=== PATIENT | female | born 1965 | race Caucasian/White ===

== ENCOUNTER 2016-12-14 10:57 | Emergency (ER) | payer OTHER ==
[~2016-12-14] VITALS: Ht 157.5 cm; Wt 57.5 kg
[~2016-12-14 10:57] MED LIST: DICY10CA60 PO; ONDA4TAB35 PO
[2016-12-14 11:01] VITALS: Ht 157.5 cm; Wt 57.5 kg
[2016-12-14] MEDS ORDERED: LID50L4 MM (12:20)
--- NOTE | 2016-12-14 15:14 | ERD ---
DATE OF SERVICE: 12/14/2016 HISTORY OF PRESENT ILLNESS: Patient is a 51-year-old female coming in complaining of blisters in he r mouth. Patient states that she was diagnosed with an autoimmune disorder, she does not know what, but she has to follow up with her primary doctor. She states she has had no other symptoms. She j ust has blisters her tongue. Has no history of diabetes, no abdominal pain, no vomiting, no dizzine ss, no confusion, no fevers, no change in urination or bowel movement. She does not use any medicat ion in her mouth. PAST MEDICAL HISTORY: Positive EUGENIA with unknown autoimmune disorder. ALLERGIES TO MEDICATIONS: Denies. SURGICAL HISTORY: Denies. SOCIAL HISTORY: Denies. REVIEW OF SYSTEMS: A 12-point review of systems was done. Refer to HPI for positives, all other sy stems negative. PHYSICAL EXAMINATION VITAL SIGNS: Temperature is 98.7, pulse is 79, blood pressure is 122/69, respiratory 16, O2 sat 96% on room air. Pain intensity is 6/10. GENERAL: The patient is well-appearing, well-nourished, no acute distress. HEART: Regular rate and rhythm. No murmurs, clicks, rubs or gallops. No S3 or S4. CHEST: Clear to auscultation bilaterally. There are no rales, wheezes or rhonchi. HEENT: Atraumatic. Conjunctivae are pink. Pupils equal, round, and reactive to light. There is no s cleral icterus. Tympanic membranes clear bilaterally. Oropharynx clear. No nystagmus or photophobia . Patient has has erythematous, beefy red ulcers noted within the oropharynx. There are no surrou nding lacerations. SKIN: There is no apparent rash or petechia. The skin is warm and dry. DIAGNOSIS: Stomatitis. MEDICAL DECISION MAKING: I have low suspicion for meningitis or sepsis. Low suspicion for bacteria l HEENT infection, and low suspicion for a parasitic infection. Patient likely has viral inflammati on. DISCHARGE: The patient is discharged stable. Patient is given a prescription for viscous lidocaine and told to follow up with primary care within 1 to 2 days for reevaluation. Patient is told if sy mptoms progress or worsen to return to the ER. All other questions answered at time of discharge. Discharge instructions given at the time of departure. Patient understood and complied with plan. Dictated By: EMILIANA ROQUE/LORE Conf#: [id number] DID#: [id number]
== END 2016-12-14 12:46 | disposition home or self-care (01) ==
LOC: FTE 10:57
DX: K12.1 Other forms of stomatitis (principal)
CPT/HCPCS: 99283

== ENCOUNTER 2017-04-08 19:51 | Emergency (ER) | payer MEDICAID, OTHER ==
[~2017-04-08] VITALS: Ht 152.4 cm; Wt 55.0 kg
[~2017-04-08 19:51] MED LIST changes: +LID50L4 MM
[2017-04-08 20:23] VITALS: Ht 152.4 cm; Wt 55.0 kg
[2017-04-08] MEDS ORDERED: AZIT250T94 PO (21:24)
[2017-04-08] MEDS ORDERED: PROM5SYR2 PO (21:24)
--- NOTE | 2017-04-08 21:27 | ERD ---
ER Documentation Chief Complaint Date/Time DATE: 04/08/17 TIME: 21:25 Chief Complaint Cough and fever with joint aches HPI 51-year-old female here presenting with cough, runny nose, sore throat, and congestion for the past 6 days. She has tried tmss-kmg-jevpiso medications without any relief. Also admits to fever. Cough is worse at night and has yellow to clear colored phlegm. Denies any nausea or vomiting. Denies any chest pain or shortness of breath ROS All systems reviewed and are negative except as per history of present illness. Medications Home Meds Active Scripts Promethazine HCl/Codeine (Prometh-Codein 6.25-10 mg/5 ml) 5 Ml Syrup, 5 ML PO Q6 , #4 OZ Prov:AARTI MCKEON PA-C 04/08/17 Azithromycin* (Zithromax*) 250 Mg Tablet, 250 MG PO .ZPACK DIRECTED, #6 TAB TAKE 500 MG (2 TABS) THE FIRST DAY THEN 250 MG (1 TAB) DAYS 2-5 Prov:AARTI MCKEON PA-C 04/08/17 Lidocaine 4% Topical (Lidocaine HCl) 4%-50 Ml Soln, 1 APPLIC MM BID, #1 BOT Prov:KEITH BORJA PA-C 12/14/16 Ondansetron Hcl* (Zofran* ODT) 4 mg -ODT Tab.disper, 4 MG PO Q6H Y for NAUSEA, # 30 TAB Prov:PATRICA COLEMAN MD 08/28/15 Dicyclomine Hcl* (Bentyl*) 10 Mg Capsule, 10 MG PO QID, #20 CAP Prov:APTRICA COLEMAN MD 08/28/15 Allergies Allergies: Coded Allergies: Penicillins (Verified Allergy, Unknown, 08/28/15) prednisone (Verified Allergy, Unknown, 08/28/15) PMhx/Soc History of Surgery: No Anesthesia Reaction: No Hx Neurological Disorder: No Hx Cardiac Disorders: No Hx Psychiatric Problems: No Hx Alcohol Use: No Hx Substance Use: No Hx Tobacco Use: No Smoking Status: Never smoker FmHx Family History: No diabetes Physical Exam Vitals Vital Signs Date Time Temp Pulse Resp B/P Pulse Ox O2 Delivery O2 Flow Rate FiO2 04/08/17 20:23 99.5 105 22 116/70 100 Physical Exam General: well developed, well nourished, alert, nontoxic, no distress Head: normocephalic, atraumatic Eyes: PERRL, normal conjunctiva Neck: Supple, nontender, no lymphadenopathy, no midline tenderness Ears: no tenderness over mastoids bilaterally, TMs nonerythematous, no exudates in canal Oropharynx: no tonsilar erythema or edema, uvula midline, no exudates, no kissing tonsils, no drooling Respiratory: Clear to auscaultation bilaterally, speaks in full sentences, no use of accesory muscles or labored breathing, no rales, ronchi, or wheezing Cardiovascular: RRR, No murmurs GI: soft, non tender, non distended, negative murphys sign, negative mcburneys point tenderness, no cva tenderness bilaterally, no rebound or guarding Procedures/MDM 51-year-old female presents with what is most likely bronchitis. Low-grade temperature 99.5. Examination is otherwise normal she is well-appearing in no distress. Discharge her with azithromycin and promethazine with codeine cough syrup. I doubt pneumonia. Recommended this patient follow up with her primary care doctor within 48 hours or return to the emergency room for any worsening of symptoms. However this time I do believe there is suitable for outpatient management. I answered all their questions and they agreed with the plan and were discharged home. Departure Diagnosis: Primary Impression: Bronchitis Condition: Stable Patient Instructions: Bronchitis, Antiobiotic Treatment (Adult) Additional Instructions: Llame al doctor GEORGETTE y kavita bree DESIREE PARA DENTRO DE 1-2 PAULSON.Dgale a la secretaria que nosotros le instruimos hacer esta desiree.Avise o llame si chaparro condicin se empeora antes de la desiree. Regresa aqui si peor o no mejor. AARTI MCKEON PA-C April 08, 2017 21:27
[2017-04-08 21:32] VITALS: PULSE 100; RESP 16
== END 2017-04-08 21:35 | disposition home or self-care (01) ==
LOC: FTE 19:51
DX: J20.9 Acute bronchitis, unspecified (principal)
CPT/HCPCS: 99284

== ENCOUNTER 2018-05-18 18:57 | Emergency (ER) | END 2018-05-18 23:29 | disposition home or self-care (01) ==

== ENCOUNTER → 2019-02-12 | Outpatient (CLI) | payer OTHER ==
[~2019-02-12] MED LIST changes: +AZIT250T PO; +DICY10CA40 PO; -DICY10CA60 PO; +FLUC150T PO; -LID50L4 MM; +LIDO40SO8 MM; +METR70GE4 VAGINAL; +PROM5SYR2 PO; +TRAM50TA2 PO
--- NOTE | 2019-02-13 09:24 | RADRPT ---
PROCEDURE: Limited x-ray of both lower extremities. CLINICAL INDICATION: Bilateral leg pain. TECHNIQUE: Single frontal weightbearing view of both lower extremities was obtained from the hips t o the ankles. COMPARISON: None. FINDINGS: The right femur length is 46 cm. The left femur length is 45 cm. The right tibia length is 35 cm. The left tibia length is 33 cm. There is diffuse osteopenia. There is joint space narrowing involving the left knee medial and latera l joint compartments. IMPRESSION: 1. Leg lengths as indicated above. 2. Diffuse osteopenia. 3. Joint space narrowing of the left knee. RPTAT: QQ .Sarbjit Sanford MD, MD Date Time Electronically viewed and signed by .Sarbjit Sanford MD, on 02/13/2019 09:24 .R/
== END | disposition home or self-care (01) ==
LOC: HKI 15:39
PROVIDERS: ATTEND Orthopaedic Surgery Adult Reconstructive Orthopaedic Surgery
DX: M25.562 Pain in left knee (principal); M25.561 Pain in right knee
CPT/HCPCS: 77073

== ENCOUNTER 2019-03-01 07:15 | Inpatient (IN) | payer OTHER ==
[~2019-03-01] VITALS: Ht 154.9 cm; Wt 61.0 kg
[2019-03-22 16:49] VITALS: BMI 25.1
[2019-03-26] VITALS (28 sets, daily range): BP systolic 93–116; BP diastolic 50–65; PULSE 74–102; RESP 11–22; Ht 154.9 cm; Wt 61.0 kg
[2019-03-26] MEDS ORDERED: LEFL10TA15 PO (08:14)
[2019-03-26] MEDS ORDERED: ADAL40PE SQ (08:15)
[2019-03-26] MEDS ORDERED: LACTATED RINGER'S 1,000 ML IV* SCH (08:30)
[2019-03-26] MEDS ORDERED: CEFAZOLIN 2 GM/50 ML (PMX) 50 ML IVPB ONE (08:30)
[2019-03-26] MEDS ORDERED: CELECOXIB 200 MG CAP PO ONE (08:30)
[2019-03-26] MEDS ORDERED: LANSOPRAZOLE 30 MG CAP PO ONE (08:30)
[2019-03-26] MEDS ORDERED: ONDANSETRON 4 MG INJ IV ONE (08:30)
[2019-03-26] MEDS ORDERED: GABAPENTIN 300 MG CAP PO ONE (09:00)
[2019-03-26] MEDS ORDERED: ACETAMINOPHEN 1000MG/100ML IV 100 ML IVPB ONE ×2 (09:00→18:30)
--- NOTE | 2019-03-26 11:49 | HPN ---
Date/Time of Note Date/Time of Note DATE: 03/26/19 TIME: 11:49 Interval H&P Admission Note Pt. seen H&P reviewed: No system changes Patient denies fever, chills, shortness of breath, chest pain, nausea/vomiting, constipation, diarrhea, numbness, and tingling. MUSCULOSKELETAL: Left extremity Skin intact Sensation intact to light touch in a sural, saphenous, deep peroneal, superficial peroneal, medial and lateral plantar nerve distribution. Motor is intact, patient able to dorsiflex and plantarflex ankle and extend and flex great toe. Dorsalis Pedis pulse +2, Brisk capillary refill. Compartments are soft. Calves non-tender to palpation bilaterally. BERNA WALTERS MD Mar 26, 2019 11:49
--- NOTE | 2019-03-26 11:55 | PREAC ---
Date/Time of Note Date/Time of Note DATE: 03/26/19 TIME: 11:55 Anesthesia Eval and Record Evaluation Time Pre-Procedure Interview DATE: 03/26/19 TIME: 11:54 Age 53 Sex female NPO: 8 hrs Preoperative diagnosis L knee RA Planned procedure L TKR Past Medical History Past Medical History: Includes Musculoskeletal: Osteoarthritis, Rheumatoid arthritis Surgery & Anesthesia Issues No known issue Meds Anticoagulation: No Beta Breanna within 24 hr: No Reason Beta Breanna not given: Pt. not on B-Breanna Reported Medications Adalimumab (Humira) 40 Mg/0.8 Ml Pen.ij.kit, 40 MG SQ EVERY 2 WEEKS 03/26/19 Leflunomide* (Leflunomide*) 10 Mg Tablet, 10 MG PO DAILY, #30 TAB 03/26/19 Discontinued Scripts Fluconazole* (Diflucan*) 150 Mg Tablet, 150 MG PO DAILY for 1 Day, #1 TAB Prov:ANGELA,ANUSHA 05/18/18 Tramadol HCl (Tramadol HCl) 50 Mg Tablet, 50 MG PO Q6 PRN for PAIN, #20 TAB Prov:ANGELA,ANUSHA 05/18/18 Metronidazole (Metronidazole Gel) 0.75% - 70GM Gel.w.appl, 1 APPFUL VAGINAL BID for BV for 7 Days, #1 TUB Prov:ANGELA,ANUSHA 05/18/18 Promethazine HCl/Codeine (Prometh-Codein 6.25-10 mg/5 ml) 5 Ml Syrup, 5 ML PO Q6, #4 OZ Prov:AARTI MCKEON PA-C 04/08/17 Azithromycin* (Zithromax*) 250 Mg Tablet, 250 MG PO .NEDA DIRECTED, #6 TAB TAKE 500 MG (2 TABS) THE FIRST DAY THEN 250 MG (1 TAB) DAYS 2-5 Prov:AARTI MCKEON PA-C 04/08/17 Lidocaine 4% Topical (Lidocaine HCl) 4%-50 Ml Soln, 1 APPLIC MM BID, #1 BOT Prov:KEITH BORJA PA-C 12/14/16 Ondansetron Hcl* (Zofran* ODT) 4 mg -ODT Tab.disper, 4 MG PO Q6H PRN for NAUSEA, #30 TAB Prov:PATRICA COLEMAN MD 08/28/15 Dicyclomine HCl (Dicyclomine HCl) 10 Mg Capsule, 10 MG PO QID, #20 CAP Prov:PATRICA COLEMAN MD 08/28/15 Current Medications Ropivacaine/ Clonidine/ Epinephrine/ Ketorolac Tromethamine/ Sodium Chloride INTRA-OP INJ ; Start 03/26/19 at 10:30 Lactated Ringer's 1,000 ml @ 125 mls/hr Q8H IV* ; Start 03/26/19 at 08:30; Stop 03/26/19 at 16:29 Meds reviewed: Yes Allergies Coded Allergies: Penicillins (Verified Allergy, Severe, RASHES, 03/26/19) prednisone (Verified Allergy, Unknown, 03/26/19) Allergies Reviewed: Yes Labs/Studies Labs Reviewed: Reviewed by anesthesiologist Blood Bank Test 03/26/19 08:30 Antibody Screen NEGATIVE Blood Type O POSITIVE test: Negative Studies: ECG Pre-procedure Exam Last vitals Vital Signs Date Temp Pulse Resp B/P (MAP) Pulse Ox O2 O2 Flow FiO2 Time Delivery Rate 03/26/19 98.4 74 16 109/59 98 Room Air 08:38 (76) Airway: Adequate mouth opening, Adequate thyromental dist Mallampati: Mallampati II Teeth: Normal Lung: Normal Heart: Normal ASA Physical Status ASA physical status: 2 Emergency: None Planned Anesthetic General/MAC: ETT Neuraxial: Spinal Nerve block: Femoral (left) Planned Pain Management Sub-arachniod narcotics Pre-operative Attestations Prior to commencing anesthesia and surgery, the patient was re-evaluated, there was verification of: *The patient's identity *The results of appropriate recent lab work and preoperative vital signs *The above evaluation not changing prior to induction *Anesthetic plan, risk benefits, alternative and complications discussed with patient/family; questions answered; patient/family understands, accepts and wishes to proceed. HERMILO GOODE Mar 26, 2019 11:55
[2019-03-26] MEDS ORDERED: TRANEXAMIC ACID 1 GM/100 ML (PMX) ONE (12:00)
[2019-03-26] MEDS ORDERED: FENTAnyl 50 MCG/ML VIAL IV PRN ×2 (12:00)
[2019-03-26] MEDS ORDERED: NEOSTIGMINE 3 MG/3 ML SYRINGE ONE (12:00)
[2019-03-26] MEDS ORDERED: ALBUTEROL 0.083% (NEB) 2.5 MG/3 ML AMP HHN PRN (12:00)
[2019-03-26] MEDS ORDERED: HYDROmorphONE 1 MG/5 ML IV SYRINGE IV PRN ×3 (12:00)
[2019-03-26] MEDS ORDERED: MEPERIDINE 25 MG INJ IV PRN (12:00)
[2019-03-26] MEDS ORDERED: DIPHENHYDRAMINE 50 MG INJ IV PRN ×2 (12:00→18:30)
[2019-03-26] MEDS ORDERED: DEXAMETHASONE 4 MG/ML 5 ML INJ ONE (12:00)
[2019-03-26] MEDS ORDERED: GLYCOPYRROLATE 0.4 MG INJ ONE (12:00)
[2019-03-26] MEDS ORDERED: DESFLURANE 15 MIN ONE ×2 (12:00)
[2019-03-26] MEDS ORDERED: METOCLOPRAMIDE 10 MG INJ IV PRN (12:00)
[2019-03-26] MEDS ORDERED: ONDANSETRON 4 MG INJ IV PRN (12:00)
[2019-03-26] MEDS ORDERED: MIDAZOLAM 1 MG/ML 2 ML INJ ONE (12:04)
[2019-03-26] MEDS ORDERED: morphine SULFATE/PF (10 MG/10 ML) INJ ONE (12:04)
[2019-03-26] MEDS ORDERED: FENTAnyl 50 MCG/ML VIAL ONE ×2 (13:07→16:04)
[2019-03-26] MEDS: TRANEXAMIC ACID 1GM/100ML(PMX) 100 ML AT INCISION X1 IVPB ONE (13:11)
[2019-03-26] MEDS ORDERED: ROCURONIUM 50 MG INJ ONE (13:24)
[2019-03-26] MEDS ORDERED: LIDOCAINE 100 MG SYRINGE ONE (13:24)
[2019-03-26] MEDS ORDERED: CEFAZOLIN 1 GM INJ ONE (13:24)
[2019-03-26] MEDS ORDERED: SUCCINYLCHOLINE CHLORIDE 100 MG/5 ML SYG IV ONE (13:24)
[2019-03-26] MEDS ORDERED: PROPOFOL 20 ML ONE (13:24)
[2019-03-26] MEDS: TRANEXAMIC ACID 1GM/100ML(PMX) 100 ML AT CLOSURE X1 IVPB ONE ×2 (16:40)
[2019-03-26] MEDS ORDERED: ROPIVACAINE 0.5 % 30 ML VIAL ONE (17:44)
[2019-03-26] MEDS ORDERED: MAGNESIUM HYDROXIDE 30ML CUP PO PRN (18:30)
[2019-03-26] MEDS ORDERED: SENNA/DOCUSATE NA (8.6MG/50MG) TAB PO PRN (18:30)
[2019-03-26] MEDS ORDERED: NA PHOSPHATE/BIPHOS 133 ML ENEMA PR PRN (18:30)
[2019-03-26] MEDS ORDERED: NACL 0.9% 3 ML SYG IV SCH (18:30)
[2019-03-26] MEDS ORDERED: NALOXONE (0.4 MG/ML) INJ IV PRN (18:30)
[2019-03-26] MEDS ORDERED: BETHANECHOL 25 MG TAB PO PRN (18:30)
[2019-03-26] MEDS ORDERED: DOCUSATE SODIUM 100 MG CAP PO ONE (18:30)
[2019-03-26] MEDS ORDERED: BISACODYL 10 MG SUPP PR PRN (18:30)
[2019-03-26] MEDS: LACTATED RINGER'S 1,000 ML IV SCH ×2 (18:50→21:10)
--- NOTE | 2019-03-26 19:14 | OPR ---
Date/Time of Note Date/Time of Note DATE: 03/26/19 TIME: 19:11 Operative Report Procedure Date: Mar 26, 2019 Preoperative Diagnosis Left knee rheumatoid arthritis and pseudoarthrosis Postoperative Diagnosis As above Operation/Procedure Performed Left total knee arthroplasty. Modifier 22 secondary to at least 50% increase in time and effort and planning secondary to complexity of case Requiring numerous releases not normally required as well as revision components. Use of intraoperative x-ray Use of intraoperative navigation Open reduction internal fixation of iatrogenic femur fracture Surgeon see signature line Recruitment Coordinator Ric Vila Anesthesia Type: general, spinal Tourniquet Time: 119 Estimated Blood Loss: 200 - 250 ml's Transfusion none Specimen none Grafts/Implants IMPLANTS: [employer] TC3 Femur: size 2.5 TC3 Femoral stem: [id number] cemented Femoral adapter: 5 degree; neutral Tibia: Size 1.5 MBT revision Tibial Sleeve: 37mm porous coated Tibial Stem: [id number] press fit Poly insert: size 2.5 rotating platform TC3, 12.5mm thickness Patella: 32mm V[employer] cerclage cable x1 Complications Iatrogenic femur fracture. Pt Condition Post Procedure: stable Disposition: PACU Procedure Description PREOP DIAGNOSIS: Left knee knee rheumatoid arthritis with pseudoarthrosis POSTOP DIAGNOSIS: Same. SURGICAL PROCEDURE: Left total knee arthroplasty. Modifier 22 secondary to significant increase in complexity and effort resulting 50% increase in time approximately 2 hours. This was secondary to complex anatomy with fixed valgus alignment and pseudoarthrosis of the joint requiring multiple soft tissue releases and requiring revision components. Use of intraoperative x-ray Use of intraoperative navigation Open reduction internal fixation of iatrogenic femur fracture CPT CODE: 64171. INDICATIONS AND CONSENT: The patient is a 53 year-old woman, with an orthopaedic history consistent with progressively worsening knee pain. They have maximized nonoperative measures, which have included activity modification, medicines, intra-articular injections. On physical exam, they have fixed valgus alignment, no previous open surgical scars. They have ROM arc of 10 degrees between 30-40 degrees of flexion, no gross ligamentous instability. No significant venous stasis or edema. Distally neurovascular intact. They were offered a knee replacement. A lengthy discussion ensued, where the patient was told that if and when the symptoms are intolerable, elective total knee replacement should be considered. The operative procedure was explained using diagrams and or three-dimensional models. The rehabilitation, the potential risks, benefits and alternatives were discussed at length. Specific risks discussed included but were not limited to excessive blood loss and the need for transfusion and therefore the risk of transmissible disease or transfusion reaction, deep infection and the potential need for repetitive debridements, implant removal, long-term antibiotic therapy, possibly requiring deep venous access, extensor mechanism complications, including subluxation or dislocation, disruption of the quadriceps or patellar tendon, fracture of the patella or avulsion of the tibial tuberosity, femoral, tibial or fibular fracture and the need for further surgery for fixation, neurovascular injury with temporary or permanent numbness, tingling, weakness or paralysis, arterial injury requiring surgery including possible amputation, deep venous thrombosis, pulmonary embolism and , persistent pain, weakness, or limp, late aseptic loosening and the need for revision, polyethylene wear- induced osteolysis and related problems, post-operative stiffness requiring closed manipulation, and finally, a wide variety of unanticipated medical problems. The opportunity to ask questions and address any concerns was provided. The patient elected to proceed with TKA. FINDINGS: Pseudoarthrosis of the knee joint. Fibrotic scar tissue adhered between the extensor mechanism and the femur as well as the tibia. Fibrotic scar tissue spanning the joint of the tibia to femur. Extremely osteoporotic bone with large cysts. Bone crumbled and was crushed with simple manipulation. The posterior medial femoral condyle was collapsed. Full-thickness loss of articular cartilage in all 3 compartments. SURGERY IN DETAIL: Patient was taken into the Operating Room, placed supine on the operating table. Preoperatively, they were given weight-based dosing of Ancef and if MRSA positive vancomycin was given in addition. Tourniquet was placed to the left proximal thigh. Regional anesthesia was administered by Anesthesia Department. Left lower extremity was prepped and draped in sterile fashion. Surgical pause was performed, correctly identifying the patient's name, medical record number, diagnoses, surgical procedure, and laterality of procedure. The leg was elevated, exsanguinated with an Esmarch, tourniquet was inflated to 250 mmHg, remained inflated for 119 minutes, after which it was deflated. An anterior midline incision approximately 15-20 cm in length was made, centered over the patella ending just medial to the tibial tubercle. Skin and subcutaneous tissue sharply dissected down the Billie's fascia superiorly, which was incised in line with skin incision. The quadriceps tendon, medial patellar retinaculum, patellar tendon were visualized. A medial parapatellar arthrotomy was performed. At this time a #10 blade was used to release the adhesions between the extensor mechanism and the femur and tibia. Fibrotic tissue bridgin g the tibiofemoral joint was then excised to medial and laterally. The proximal medial tibia was subperiosteally exposed for a distance of 4 cm from joint line. The deep infrapatellar bursa was incised. The patella was subluxated and the knee was flexed, while protecting the insertion of patellar tendon. A 3/8-inch curved osteotome was used to enter the semimembranosus bursa at the level of the joint line medially. Medial meniscus was excised at the meniscal- synovial junction. The anterior cruciate ligament was excised. The posterior cruciate ligament was excised with electrocautery from the intercondylar region and a posterior retractor was placed, subluxating the tibia anterolateral to the femur. A hernia was made anterolateral to the lateral meniscus and a right- angle retractor was placed over the anterolateral tibia. A lateral meniscectomy was performed. The inferior lateral geniculate artery was coagulated. The tibia was reduced under the femur. An intramedullary pin was placed for the OrthAlign device. The OrthAlign navigation unit and sensor were calibrated at the back table. The OrthAlign femoral cutting jig was then placed over the central pin, and secured with a medial and lateral pin. The OrthAlign navigation unit and OrthAlign sensor were then attached to the jig. The leg was maneuvered for appropriate capture and calibration. After this was performed, the navigation unit was adjusted for a 0 varus/valgus (neutral mechanical axis) and 2.0-2.5 degree posterior flexion cut. The cutting jig was locked in place. The navigation and sensor unit were then removed. The distal femoral cut was set at 11mm for the osteotomy . This was then secured with two pins. A distal femoral osteotomy was performed. The OrthAlign femoral jig was then removed. A posterior retractor was placed and an anterolateral retractor was placed on the tibia, subluxating the tibia anterior to the femur. The OrthAlign tibial cutting jig was then applied to the tibia preliminarily with the strap. This was secured with two pins centered over the medial 1/3 of the tibial tubercle. The offset was established proximally at the ACL footprint. This was then matched distally. Registration was then performed, registering the lateral malleolus and the medial malleolus. After this was performed, the malleolar probe was then utilized to help set the appropriate varus/valgus as well as tibial slope. This was then locked into position. The navigation guide and sensor were then removed. The slotted tibial cutting jig was then applied and secured with two pins. A proximal tibia osteotomy was performed. The tibia was then brought to full extension and a 10 mm spacer block was inserted, and felt to be satisfactory extension gap. The knee was flexed again and the tibial alignment guide was then removed. With the knee flexed to 90 degrees a femoral sizing jig was placed on the distal femur and secured, the femur sized to a size 2.5. Modified gap balancing technique was used to determine external rotation as posterior referencing would not be accurate secondary to AVN of the medial femoral condyle. This was parallel to the epicondylar axis. A size 2.5 4-in-1 femoral cutting block was then secured to the femur with two lock pins and an anterior, posterior condylar cut were performed, followed by an anterior chamfer and a posterior chamfer cut. Cutting block was removed. A 10 mm spacer was then inserted at 90 degrees of flexion and this was symmetric with the extension gap. An intercondylar box osteotomy was performed using the box cutting guide. Secondary to the severe osteoporosis of the tibia it was decided to use a revision mobile bearing tibial baseplate wear a sleeve could be used to augment metaphyseal fixation. This time attention turned towards preparing the tibia for sleeve and stem components. An opening reamer was used followed by straight reamers for an intramedullary guide. These were sequentially enlarged to a size 75 x 16 mm when good cortical contact was appreciated. Using a longer and smaller trial stem as it intramedullary guide the tibial metaphysis was prepped for a sleeve first with a reamer and then by the broach. A trial tibial base plate, size 1.5 with a 37 mm trial sleeve with a 75 x 16 mm trial stem was inserted without difficulty. The keel punch was then completed. At this time trial femoral component was placed and was noted that the MCL further attenuated. Therefore decided to convert to a TC3 given the attenuation of the MCL. Opening reamer was used to open the femoral canal. This is followed by bulb syringe irrigation until the fluid was clear. Reamers by hand were used sequentially until size 30 x 13 mm cemented stem. A reciprocating saw was used to make the box cut. At this time all femoral cutting blocks and reamers were removed. A 10 mm spacer was then inserted at 90 degrees of flexion and this was symmetric with the extension gap. A trial size 2.5 femur with a 30 x 13 mm trial stem was then inserted. A 10 mm constrained polyethylene trial was inserted and the knee was brought to full extension.The patella was everted and the osteochondral junction was exposed. The patella measured 20 mm in thickness. A patellar osteotomy performed leaving 12 mm remnant patella. Three lug holes were drilled for the 32mm diameter p atellar button. At this time the femoral canal was prepared for cementation. A cement restrictor was placed at the appropriate depth measured off the trial component. A canal brush was then used to clean debris followed by copious irrigation and vaginal packing. Posterior capsule along the posterior femoral condyles was released in order to obtain full extension. Cement with antibiotics was mixed at the back table. At the appropriate time and consistency cement was placed onto the tibial plateau. Cement was finger pressurized. Cement was placed on the backside of the tibial component and along the stem and sleeve were placed in the appropriate rotation. The tibial component was placed by hand into the keel and was then impacted and extruded cement removed. Cement was then finger pressurized into the femoral canal and cement was applied to exposed bone of the femur, as well as the posterior condylar portion prostheses, and the femoral component was inserted, extruded cement was then removed. The knee was brought to full extension. Cement was applied to the patella, as well as the patellar button, which was clamped into position. Extruded cement was removed. It was noted at this time that there was a small nondisplaced fracture over the anterior femoral metaphysis. This fracture propagated approximately from the prosthesis for about 5 cm. It was incomplete fracture but did travel towards the medial cortex. After the cement completely dried, the tourniquet was deflated. [employer] cable was carefully passed around the femoral metaphysis using a cable passer. This was appropriately tensioned and tightened. The fracture was stable. At this time the knee was flexed, the trial polyethylene was removed. Scored cement was removed. Hemostasis was obtained. Pulse lavage was used to irrigate and remove any loose debris from posterior knee. A formal size 2.5, 12.5 mm TC3 polyethylene was inserted. Range of motion was 0 to 110 degrees. The limiting factor for flexion was a tight extensor mechanism. The quad tendon was extremely shortened. The quad tendon was manually stretched to obtain 110 degrees. Prior to stretching flexion only to 90 degrees. The knee was reduced, hemostasis obtained. Copious amounts of irrigation was used with pulse lavage to remove and loose debris. The arthrotomy was closed with 1 PDS in a [id number], interrupted fashion, subcutaneous tissues irrigated, closed with 2-0 Vicryl in an inverted, interrupted fashion. The skin was closed with phoebe. A sterile dressing was applied. Sponge, needle and instrument counts were correct at the end of the case. DISPOSITION: Patient transferred to PACU in stable condition. The patient will be NON weight bearing as tolerated on the operative extremity. PT will begin POD #0 if available. Postoperative AP and lateral of the operative knee will be ordered in PACU. Bilateral knee high SCDs will be worn while admitted. ASA 81mg BID will be given for DVT prophylaxis for 6 weeks. Pain will be controlled with medication. The patient will follow up in clinic in approximately 2 weeks. IMPLANTS: [employer] TC3 Femur: size 2.5 TC3 Femoral stem: [id number] cemented Femoral adapter: 5 degree; neutral Tibia: Size 1.5 MBT revision Tibial Sleeve: 37mm porous coated Tibial Stem: [id number] press fit Poly insert: size 2.5 rotating platform TC3, 12.5mm thickness Patella: 32mm [employer] cerclage cable x1 NAME OF SURGEONS AND ASSISTANTS: Surgeon: Berna Geiger MD Recruitment Coordinator: BERNA Weston MD Mar 26, 2019 19:14
[2019-03-26] MEDS: CEFAZOLIN 2 GM/50 ML (PMX) 50 ML IVPB SCH (19:21)
[2019-03-26] MEDS: KETOROLAC 15 MG INJ IV PRN (19:36)
[2019-03-26] MEDS: ACETAMINOPHEN 500 MG TAB PO SCH (21:45)
[2019-03-26] MEDS: GABAPENTIN 300 MG CAP PO SCH (21:45)
[2019-03-27] MEDS: CEFAZOLIN 2 GM/50 ML (PMX) 50 ML IVPB SCH ×2 (03:06→10:19)
[2019-03-27 04:06] VITALS: BP 85/52; PULSE 72; RESP 18
[2019-03-27 04:40] VITALS: BP 90/50
[2019-03-27] MEDS: ACETAMINOPHEN 500 MG TAB PO SCH ×3 (05:28→21:25)
[2019-03-27 05:29] VITALS: BP 101/58; PULSE 88; RESP 20
[2019-03-27 07:41] VITALS: BP 86/51; PULSE 67; RESP 18
--- NOTE | 2019-03-27 08:44 | CONS ---
Assessment/Plan Assessment/Plan Hospital Course (Demo Recall) 53-year-old female who was admitted for elective left total knee arthroplasty and is being monitored as inpatient. 1. Left knee rheumatoid arthritis and pseudoarthrosis. -Status post left total knee arthroplasty on 03/26/2019. -Postoperative day #1. -Continue pain control. -Pain management as per orthopedic surgery. -Weightbearing and anticoagulation as per orthopedic surgery. 2. Normocytic, normochromic anemia. -Most probably anemia of chronic disease -Monitor H&H closely. 3. Rheumatoid arthritis -Resume leflunomide. 4. Fluids, electrolytes, and nutrition. -Regular diet. 5. Anticoagulation. -As per orthopedic surgery. Additional diagnostic and therapeutic orders will be added as clinically indicated. We will continue to follow the patient along with you. Thank you Dr. Geiger for allowing us to participate in this patient's care. The patient was seen in collaboration with Dr. Bee. Consultation Date/Type/Reason Admit Date/Time Mar 26, 2019 at 07:27 Date of Consultation: March 27, 2019 Type of Consult Medical. Reason for Consultation Medical management. Requesting Provider: BERNA GEIGER MD Date/Time of Note DATE: 03/27/19 TIME: 08:44 Hx of Present Illness This is a 53-year-old female with no significant past medical history other than her rheumatoid arthritis. The patient was brought to [facility] for elective left total knee arthroplasty. The patient underwent a left total knee arthroplasty on 03/26/2019. The patient was admitted to inpatient setting for further monitoring. Hospitalist consult was called for medical management. Constitutional: no complaints Eyes: no complaints ENT: no complaints Respiratory: no complaints Cardiovascular: no complaints Gastrointestinal: no complaints Genitourinary: no complaints Musculoskeletal: bone/joint pain Skin: no complaints Neurologic: no complaints Endocrine: no complaints Lymphatic: no complaints Psychological: no complaints Immunologic: no complaints Past Medical History Rheumatoid arthritis. Home Meds Reported Medications Adalimumab (Humira) 40 Mg/0.8 Ml Pen.ij.kit, 40 MG SQ EVERY 2 WEEKS 03/26/19 Leflunomide* (Leflunomide*) 10 Mg Tablet, 10 MG PO DAILY, #30 TAB 03/26/19 Discontinued Scripts Fluconazole* (Diflucan*) 150 Mg Tablet, 150 MG PO DAILY for 1 Day, #1 TAB Prov:ANGELA,ANUSHA 05/18/18 Tramadol HCl (Tramadol HCl) 50 Mg Tablet, 50 MG PO Q6 PRN for PAIN, #20 TAB Prov:ANGELA,ANUSHA 05/18/18 Metronidazole (Metronidazole Gel) 0.75% - 70GM Gel.w.appl, 1 APPFUL VAGINAL BID for BV for 7 Days, #1 TUB Prov:ANGELA,ANUSHA 05/18/18 Promethazine HCl/Codeine (Prometh-Codein 6.25-10 mg/5 ml) 5 Ml Syrup, 5 ML PO Q6, #4 OZ Prov:AARTI MCKEON PA-C 04/08/17 Azithromycin* (Zithromax*) 250 Mg Tablet, 250 MG PO .ZPACK DIRECTED, #6 TAB TAKE 500 MG (2 TABS) THE FIRST DAY THEN 250 MG (1 TAB) DAYS 2-5 Prov:AARTI MCKEON PA-C 04/08/17 Lidocaine 4% Topical (Lidocaine HCl) 4%-50 Ml Soln, 1 APPLIC MM BID, #1 BOT Prov:KEITH BORJA PA-C 12/14/16 Ondansetron Hcl* (Zofran* ODT) 4 mg -ODT Tab.disper, 4 MG PO Q6H PRN for NAUSEA, #30 TAB Prov:PATRICA COLEMAN MD 08/28/15 Dicyclomine HCl (Dicyclomine HCl) 10 Mg Capsule, 10 MG PO QID, #20 CAP Prov:PATRICA COLEMAN MD 08/28/15 Medications Current Medications Lactated Ringer's 1,000 ml @ 80 mls/hr [id number] IV Last administered on 03/26/19at 21:10; Admin Dose 80 MLS/HR; Start 03/26/19 at 18:21 IV Flush (NS 3 ml) 3 ml PER PROTOCOL IV ; Start 03/26/19 at 18:30 Oxycodone HCl (Roxicodone) 15 mg Q4H PRN PO .PAIN; Start 03/26/19 at 18:30 Oxycodone HCl (Roxicodone) 10 mg Q4H PRN PO .PAIN; Start 03/26/19 at 18:30 Oxycodone HCl (Roxicodone) 5 mg Q4H PRN PO .PAIN; Start 03/26/19 at 18:30 Hydromorphone HCl (Dilaudid) 1 mg Q3H PRN IV .BREAKTHROUGH PAIN; Start 03/26/19 at 18:30 Acetaminophen (Tylenol Tab) 1,000 mg Q8 PO Last administered on 03/27/19at 05:28; Admin Dose 1,000 MG; Start 03/26/19 at 22:00 Ketorolac Tromethamine (Toradol) 15 mg Q6H PRN IV .PAIN Last administered on 03/26/19at 19:36; Admin Dose 15 MG; Start 03/26/19 at 18:30 Ondansetron HCl (Zofran Inj) 4 mg Q4H PRN IV NAUSEA/VOMITING; Start 03/27/19 at 18:30 Cefazolin Sodium/ Dextrose 50 ml @ 100 mls/hr Q8H IVPB Last administered on 03/27/19at 03:06; Admin Dose 100 MLS/HR; Start 03/26/19 at 18:30; Stop 03/27/19 at 10:59 Gabapentin (Neurontin) 300 mg QHS PO Last administered on 03/26/19at 21:45; Admin Dose 300 MG; Start 03/26/19 at 21:00 Pantoprazole (Protonix Tab) 40 mg DAILY@06 PO ; Start 03/28/19 at 06:00 Docusate Sodium (Colace) 200 mg BID PO ; Start 03/27/19 at 09:00; Stop 03/30/19 at 08:59 Simethicone (Mylicon) 80 mg TID PRN PO .GAS; Start 03/26/19 at 18:30 Senna/Docusate Sodium (Senokot-S) 2 tab BID PRN PO .CONSTIPATION; Start 03/26/19 at 18:30 Magnesium Hydroxide (Milk Of Mag) 30 ml HS PRN PO .CONSTIPATION; Start 03/26/19 at 18:30 Bisacodyl (Dulcolax Supp) 10 mg DAILY PRN [place] .CONSTIPATION; Start 03/26/19 at 18:30 Sodium Biphosphate/ Sodium Phosphate (Fleet Enema) 133 ml DAILY PRN [place] .CONSTIPATION; Start 03/26/19 at 18:30 Diphenhydramine HCl (Benadryl) 25 mg Q4H PRN IV .ITCHING; Start 03/26/19 at 18:30 Naloxone HCl (Narcan) 0.2 mg Q2M PRN IV .RESP RATE; Start 03/26/19 at 18:30 Bethanechol Chloride (Urecholine) 25 mg URINARY CATH D/C PRN PO UNABLE TO VOID; Start 03/26/19 at 18:30 Aspirin (Halfprin) 81 mg BID PO ; Start 03/27/19 at 09:00 Allergies: Coded Allergies: Penicillins (Verified Allergy, Severe, RASHES, 03/26/19) prednisone (Verified Allergy, Unknown, 03/26/19) Past Surgical History Past Surgical Hx: no surgical history Family History Significant Family History: heart disease Social History Currently not working. Lives at home with family. Alcohol Use: none Smoking Status: Never smoker Drug Use: none Exam/Review of Systems Exam Vitals Vital Signs Date Temp Pulse Resp B/P (MAP) Pulse Ox O2 O2 Flow FiO2 Time Delivery Rate 03/27/19 98.3 67 18 86/51 (63) 100 Room Air 07:41 03/26/19 6.0 18:34 Intake and Output 03/26/19 03/26/19 03/27/19 1515:00 23:00 07:00 IntakeIntake Total 100 ml 2970 ml 1230 ml OutputOutput Total 550 ml 1650 ml BalanceBalance 100 ml 2420 ml -420 ml Exam General: Adequately build 53 year-old female sitting in a chair in no apparent distress. HEENT: Normocephalic, atraumatic. Eyes: Anicteric sclerae, conjunctivae clear. ENT: Nasal septum midline, oral mucosa moist. Neck supple, no JVD noticed. Respiratory: Bilaterally clear breath sounds. No use of accessory muscles of respiration. No adventitious breath sounds. Cardiovascular: S1, S2 heard. Regular rate and rhythm. Abdomen: Soft, nontender, and nondistended. Bowel sounds positive in all 4 quadrants. Genitourinary: Deferred. Extremities: No cyanosis, no clubbing. Left knee surgical dressing. Peripheral pulses palpable. Neurologic: Cranial nerves II through XII grossly intact. The patient is awake, alert, and oriented. Skin: Normal skin turgor. No skin rashes. Results Result Diagram: 03/27/19 0428 03/27/19 0500 Results 24hrs Laboratory Tests Test 03/27/19 04:28 03/27/19 05:00 03/27/19 06:49 White Blood Count 9.9 Red Blood Count 3.00 #L Hemoglobin 8.7 #L Hematocrit 26.3 #L Mean Corpuscular Volume 87.7 Mean Corpuscular Hemoglobin 29.0 Mean Corpuscular Hemoglobin Concent 33.1 Red Cell Distribution Width 14.5 Platelet Count 228 # Mean Platelet Volume 10.0 Immature Granulocytes % 0.300 Neutrophils % 80.5 H Lymphocytes % 13.0 L Monocytes % 6.1 Eosinophils % 0.0 Basophils % 0.1 Nucleated Red Blood Cells % 0.0 Immature Granulocytes # 0.030 Neutrophils # 7.9 H Lymphocytes # 1.3 Monocytes # 0.6 Eosinophils # 0.0 Basophils # 0.0 Nucleated Red Blood Cells # 0.0 Sodium Level 143 Potassium Level 4.1 Chloride Level 112 H Carbon Dioxide Level 26 Anion Gap 5 Blood Urea Nitrogen 12 Creatinine 0.50 Est Glomerular Filtrat Rate mL/min > 60 Glucose Level 115 Calcium Level 8.7 Lab Scanned Report REFERENCE LAB Medications Medication Current Medications Lactated Ringer's 1,000 ml @ 80 mls/hr [id number] IV Last administered on at 21:10; Admin Dose 80 MLS/HR; Start 03/26/19 at 18:21 IV Flush (NS 3 ml) 3 ml PER PROTOCOL IV ; Start 03/26/19 at 18:30 Oxycodone HCl (Roxicodone) 15 mg Q4H PRN PO .PAIN; Start 03/26/19 at 18:30 Oxycodone HCl (Roxicodone) 10 mg Q4H PRN PO .PAIN; Start 03/26/19 at 18:30 Oxycodone HCl (Roxicodone) 5 mg Q4H PRN PO .PAIN; Start 03/26/19 at 18:30 Hydromorphone HCl (Dilaudid) 1 mg Q3H PRN IV .BREAKTHROUGH PAIN; Start 03/26/19 at 18:30 Acetaminophen (Tylenol Tab) 1,000 mg Q8 PO Last administered on 03/27/19at 05:28; Admin Dose 1,000 MG; Start 03/26/19 at 22:00 Ketorolac Tromethamine (Toradol) 15 mg Q6H PRN IV .PAIN Last administered on 03/26/19at 19:36; Admin Dose 15 MG; Start 03/26/19 at 18:30 Ondansetron HCl (Zofran Inj) 4 mg Q4H PRN IV NAUSEA/VOMITING; Start 03/27/19 at 18:30 Cefazolin Sodium/ Dextrose 50 ml @ 100 mls/hr Q8H IVPB Last administered on 03/27/19at 03:06; Admin Dose 100 MLS/HR; Start 03/26/19 at 18:30; Stop 03/27/19 at 10:59 Gabapentin (Neurontin) 300 mg QHS PO Last administered on 03/26/19at 21:45; Admin Dose 300 MG; Start 03/26/19 at 21:00 Pantoprazole (Protonix Tab) 40 mg DAILY@06 PO ; Start 03/28/19 at 06:00 Docusate Sodium (Colace) 200 mg BID PO ; Start 03/27/19 at 09:00; Stop 03/30/19 at 08:59 Simethicone (Mylicon) 80 mg TID PRN PO .GAS; Start 03/26/19 at 18:30 Senna/Docusate Sodium (Senokot-S) 2 tab BID PRN PO .CONSTIPATION; Start 03/26/19 at 18:30 Magnesium Hydroxide (Milk Of Mag) 30 ml HS PRN PO .CONSTIPATION; Start 03/26/19 at 18:30 Bisacodyl (Dulcolax Supp) 10 mg DAILY PRN [place] .CONSTIPATION; Start 03/26/19 at 18:30 Sodium Biphosphate/ Sodium Phosphate (Fleet Enema) 133 ml DAILY PRN [place] .CONSTIPATION; Start 03/26/19 at 18:30 Diphenhydramine HCl (Benadryl) 25 mg Q4H PRN IV .ITCHING; Start 03/26/19 at 18:30 Naloxone HCl (Narcan) 0.2 mg Q2M PRN IV .RESP RATE; Start 03/26/19 at 18:30 Bethanechol Chloride (Urecholine) 25 mg URINARY CATH D/C PRN PO UNABLE TO VOID; Start 03/26/19 at 18:30 Aspirin (Halfprin) 81 mg BID PO ; Start 03/27/19 at 09:00 ABDELRAHMAN OTTO NP March 27, 2019 08:44
[2019-03-27] MEDS: ASPIRIN (EC) 81 MG TAB PO SCH ×2 (08:46→20:06)
[2019-03-27] MEDS: DOCUSATE SODIUM 100 MG CAP PO SCH ×2 (08:47→20:06)
[2019-03-27] MEDS: LEFLUNOMIDE 20 MG TAB PO SCH (10:38)
--- NOTE | 2019-03-27 12:09 | PAC ---
Date/Time of Note Date/Time of Note DATE: 03/27/19 TIME: 12:09 Post-Anesthesia Notes Post-Anesthesia Note Last documented vital signs Vital Signs Date Temp Pulse Resp B/P (MAP) Pulse Ox O2 O2 Flow FiO2 Time Delivery Rate 03/27/19 98.3 67 18 86/51 (63) 100 Room Air 07:41 03/26/19 6.0 18:34 Activity: WNL Respiratory function: WNL Cardiovascular function: WNL Mental status: Baseline Pain reasonably controlled: Yes Hydration appropriate: Yes Nausea/Vomiting absent: Yes HERMILO GOODE March 27, 2019 12:09
--- NOTE | 2019-03-27 16:24 | PN ---
Date/Time of Note Date/Time of Note DATE: 03/27/19 TIME: 16:23 Assessment/Plan Lines/Catheters IV Catheter Type (from Nrsg): Peripheral IV Salazar in Place (from Nrsg): No Assessment/Plan Chief Complaint/Hosp Course POD#1 s/p primary left TKA with TC3 -Post op H&H stable -PT/OT -Joints pain control protocol -DVT prophylaxis: SCD's, aspirin 81 mg twice daily x6 weeks -Weight bearing status: Partial weightbearing 20% left lower extremity secondary to iatrogenic femur fracture -Post-op XR ordered -Abx: 24h vanc/ancef -Diet: ADAT -Salazar: Discontinued -Discharge planning consult Planned Discharge Date: Tomorrow Discharge to with home health Subjective 24 Hr Interval Summary Patient doing well No acute events overnight Pain is moderately well controlled Exam/Review of Systems Vital Signs Vitals Vital Signs Date Temp Pulse Resp B/P (MAP) Pulse Ox O2 O2 Flow FiO2 Time Delivery Rate 03/27/19 36.8 14:00 03/27/19 67 18 86/51 (63) 100 Room Air 07:41 03/26/19 6.0 18:34 Intake and Output 03/26/19 03/26/19 03/27/19 1515:00 23:00 07:00 IntakeIntake Total 100 ml 2970 ml 1230 ml OutputOutput Total 550 ml 1650 ml BalanceBalance 100 ml 2420 ml -420 ml Exam Free Text/Dictation Left lower extremity: Dressing: clean, dry, and intact, no erythema Sensation intact to light touch in a sural, saphenous, deep peroneal, superficial peroneal, medial and lateral plantar nerve distribution. Motor is intact, patient able to dorsiflex and plantarflex ankle and extend and flex great toe. Dorsalis Pedis pulse +2, Brisk capillary refill. Compartments are soft. Calves non-tender to palpation bilaterally. Results Result Diagram: 03/27/19 0428 03/27/19 0500 BERNA WALTERS MD March 27, 2019 16:24
[2019-03-27] MEDS: oxyCODONE 5 MG TAB PO PRN ×3 (16:39→18:51)
[2019-03-27] MEDS: KETOROLAC 15 MG INJ IV PRN (17:02)
[2019-03-27 17:27] VITALS: BP 98/57; PULSE 86; RESP 18
[2019-03-27] MEDS ORDERED: ONDANSETRON 4 MG INJ IV PRN (18:30)
[2019-03-27] MEDS: LACTATED RINGER'S 1,000 ML IV SCH (19:21)
[2019-03-27 20:00] VITALS: BP 82/45; PULSE 87; RESP 20
[2019-03-27] MEDS: HYDROmorphONE 1 MG/ML SYG IV PRN (20:03)
[2019-03-27] MEDS: GABAPENTIN 300 MG CAP PO SCH (20:05)
[2019-03-28 01:00] VITALS: BP 90/53; PULSE 86; RESP 20
[2019-03-28] MEDS: oxyCODONE 5 MG TAB PO PRN ×5 (01:07→23:07)
[2019-03-28] MEDS: KETOROLAC 15 MG INJ IV PRN ×2 (02:52→18:02)
[2019-03-28] MEDS: HYDROmorphONE 1 MG/ML SYG IV PRN ×2 (03:34→09:08)
[2019-03-28] MEDS: PANTOPRAZOLE (EC) 40 MG TAB PO SCH (05:25)
[2019-03-28] MEDS: ACETAMINOPHEN 500 MG TAB PO SCH ×3 (05:25→22:00)
[2019-03-28] MEDS: LACTATED RINGER'S 1,000 ML IV SCH (07:51)
[2019-03-28 07:57] VITALS: BP 82/47; PULSE 105; RESP 18
[2019-03-28] MEDS: ASPIRIN (EC) 81 MG TAB PO SCH ×2 (08:10→20:38)
[2019-03-28] MEDS: LEFLUNOMIDE 20 MG TAB PO SCH (08:10)
[2019-03-28] MEDS: DOCUSATE SODIUM 100 MG CAP PO SCH ×2 (08:10→20:42)
--- NOTE | 2019-03-28 09:58 | CONS ---
Assessment/Plan Assessment/Plan Hospital Course (Demo Recall) SUBJECTIVE: Complains of left knee pain, relieved with analgesics. OBJECTIVE: Physical Exam General: Adequately build 53 year-old female sitting in a chair in no apparent d istress. HEENT: Normocephalic, atraumatic. Eyes: Anicteric sclerae, conjunctivae clear. ENT: Nasal septum midline, oral mucosa moist. Neck supple, no JVD noticed. Respiratory: Bilaterally clear breath sounds. No use of accessory muscles of respiration. No adventitious breath sounds. Cardiovascular: S1, S2 heard. Regular rate and rhythm. Abdomen: Soft, nontender, and nondistended. Bowel sounds positive in all 4 quadrants. Genitourinary: Deferred. Extremities: No cyanosis, no clubbing. Left knee surgical dressing. Peripheral pulses palpable. Neurologic: Cranial nerves II through XII grossly intact. The patient is awake, alert, and oriented. Skin: Normal skin turgor. No skin rashes. Labs & Vitals per chart ASSESSMENT & PLAN 53-year-old female who was admitted for elective left total knee arthroplasty and is being monitored as inpatient. 1. Left knee rheumatoid arthritis and pseudoarthrosis. -Status post left total knee arthroplasty on 03/26/2019. -Postoperative day #2. -Continue pain control. -Pain management as per orthopedic surgery. -Weightbearing and anticoagulation as per orthopedic surgery. 2. Normocytic, normochromic anemia. -Most probably anemia of chronic disease -Monitor H&H closely. 3. Rheumatoid arthritis -Continue leflunomide. 4. Fluids, electrolytes, and nutrition. -Regular diet. 5. Anticoagulation. -As per orthopedic surgery. 6. Recommendations. -Drop in H&H noticed. -No evidence of any significant bleeding. -Monitor H&H closely. -Blood pressure on the lower side, however, remains asymptomatic and the patient verbalized she always had low blood pressure readings. Additional diagnostic and therapeutic orders will be added as clinically indicated. We will continue to follow the patient along with you. Thank you Dr. Geiger for allowing us to participate in this patient's care. The patient was seen in collaboration with Dr. Bee. Consultation Date/Type/Reason Admit Date/Time March 28, 2019 at 08:08 Initial Consult Date 03/27/19 Type of Consult Medical. Reason for Consultation Medical management. Requesting Provider: BERNA GEIGER MD Date/Time of Note DATE: 03/28/19 TIME: 09:54 Exam/Review of Systems Exam Vitals Vital Signs Date Temp Pulse Resp B/P (MAP) Pulse Ox O2 O2 Flow FiO2 Time Delivery Rate 03/28/19 99.3 105 18 82/47 (59) 99 Room Air 07:57 03/26/19 6.0 18:34 Intake and Output 03/27/19 03/27/19 03/28/19 1515:00 23:00 07:00 IntakeIntake Total 160 ml OutputOutput Total 495 ml BalanceBalance -335 ml Results Result Diagram: 03/28/19 0425 03/28/19 0425 Results 24hrs Laboratory Tests Test 03/28/19 04:25 03/28/19 07:17 White Blood Count 7.0 # Red Blood Count 2.71 L Hemoglobin 7.8 L Hematocrit 24.4 L Mean Corpuscular Volume 90.0 Mean Corpuscular Hemoglobin 28.8 L Mean Corpuscular Hemoglobin Concent 32.0 Red Cell Distribution Width 15.0 H Platelet Count 216 Mean Platelet Volume 10.0 Immature Granulocytes % 0.100 Neutrophils % 59.4 Lymphocytes % 32.4 Monocytes % 7.1 Eosinophils % 0.7 Basophils % 0.3 Nucleated Red Blood Cells % 0.0 Immature Granulocytes # 0.010 Neutrophils # 4.2 Lymphocytes # 2.3 Monocytes # 0.5 Eosinophils # 0.1 Basophils # 0.0 Nucleated Red Blood Cells # 0.0 Sodium Level 144 Potassium Level 3.6 Chloride Level 111 H Carbon Dioxide Level 28 Anion Gap 5 Blood Urea Nitrogen 13 Creatinine 0.52 Est Glomerular Filtrat Rate mL/min > 60 Glucose Level 106 Calcium Level 8.7 Lab Scanned Report REFERENCE LAB Medications Medication Current Medications Lactated Ringer's 1,000 ml @ 80 mls/hr [id number] IV Last administered on 03/26/19at 21:10; Admin Dose 80 MLS/HR; Start 03/26/19 at 18:21 IV Flush (NS 3 ml) 3 ml PER PROTOCOL IV ; Start 03/26/19 at 18:30 Oxycodone HCl (Roxicodone) 15 mg Q4H PRN PO .PAIN Last administered on 03/28/19at 08:10; Admin Dose 15 MG; Start 03/26/19 at 18:30 Oxycodone HCl (Roxicodone) 10 mg Q4H PRN PO .PAIN; Start 03/26/19 at 18:30 Oxycodone HCl (Roxicodone) 5 mg Q4H PRN PO .PAIN Last administered on 03/27/19at 18:51; Admin Dose 5 MG; Start 03/26/19 at 18:30 Hydromorphone HCl (Dilaudid) 1 mg Q3H PRN IV .BREAKTHROUGH PAIN Last administered on 03/28/19 09:08; Admin Dose 1 MG; Start 03/26/19 at 18:30 Acetaminophen (Tylenol Tab) 1,000 mg Q8 PO Last administered on 03/28/19 05:25; Admin Dose 1,000 MG; Start 03/26/19 at 22:00 Ketorolac Tromethamine (Toradol) 15 mg Q6H PRN IV .PAIN Last administered on 03/28/19 02:52; Admin Dose 15 MG; Start 03/26/19 at 18:30 Ondansetron HCl (Zofran Inj) 4 mg Q4H PRN IV NAUSEA/VOMITING; Start 03/27/19 at 18:30 Gabapentin (Neurontin) 300 mg QHS PO Last administered on 03/27/19at 20:05; Admin Dose 300 MG; Start 03/26/19 at 21:00 Pantoprazole (Protonix Tab) 40 mg DAILY@06 PO Last administered on 03/28/19 05:25; Admin Dose 40 MG; Start 03/28/19 at 06:00 Docusate Sodium (Colace) 200 mg BID PO Last administered on 03/28/19at 08:10; Admin Dose 200 MG; Start 03/27/19 at 09:00; Stop 03/30/19 at 08:59 Simethicone (Mylicon) 80 mg TID PRN PO .GAS; Start 03/26/19 at 18:30 Senna/Docusate Sodium (Senokot-S) 2 tab BID PRN PO .CONSTIPATION; Start 03/26/19 at 18:30 Magnesium Hydroxide (Milk Of Mag) 30 ml HS PRN PO .CONSTIPATION; Start 03/26/19 at 18:30 Bisacodyl (Dulcolax Supp) 10 mg DAILY PRN [place] .CONSTIPATION; Start 03/26/19 at 18:30 Sodium Biphosphate/ Sodium Phosphate (Fleet Enema) 133 ml DAILY PRN [place] .CONSTIPATION; Start 03/26/19 at 18:30 Diphenhydramine HCl (Benadryl) 25 mg Q4H PRN IV .ITCHING; Start 03/26/19 at 18:30 Naloxone HCl (Narcan) 0.2 mg Q2M PRN IV .RESP RATE; Start 03/26/19 at 18:30 Bethanechol Chloride (Urecholine) 25 mg URINARY CATH D/C PRN PO UNABLE TO VOID; Start 03/26/19 at 18:30 Aspirin (Halfprin) 81 mg BID PO Last administered on 03/28/19at 08:10; Admin Dose 81 MG; Start 03/27/19 at 09:00 Leflunomide (Arava) 10 mg DAILY PO Last administered on 03/28/19at 08:10; Admin Dose 10 MG; Start 03/27/19 at 10:30 ABDELRAHMAN OTTO NP March 28, 2019 09:58
[2019-03-28 15:29] VITALS: BP 108/58; PULSE 102; RESP 18
--- NOTE | 2019-03-28 19:00 | PN ---
Date/Time of Note Date/Time of Note DATE: 03/28/19 TIME: 18:58 Assessment/Plan Lines/Catheters IV Catheter Type (from Nrsg): Saline Lock Salazar in Place (from Nrsg): No Assessment/Plan Chief Complaint/Hosp Course POD#2 s/p primary left TKA with TC3. Patient's pain continues to be not well controlled. I reiterated to the patient that she needs to request pain m edication when her pain which is above 5/10. She has not been requesting pain medication on a regular basis. She has been letting the pain reach a level that becomes difficult to control. Secondary to lack of pain control the patient will not be discharged home today. Physical therapy needs to focus on range of motion especially full extension. -Post op H&H stable -PT/OT -Joints pain control protocol -DVT prophylaxis: SCD's, aspirin 81 mg twice daily x6 weeks -Weight bearing status: Partial weightbearing 20% left lower extremity secondary to iatrogenic femur fracture -Diet: ADAT -Salazar: Discontinued -Discharge planning consult Planned Discharge Date: Tomorrow Discharge to with home health Subjective 24 Hr Interval Summary Patient doing well No acute events overnight Pain is not well controlled Exam/Review of Systems Vital Signs Vitals Vital Signs Date Temp Pulse Resp B/P (MAP) Pulse Ox O2 O2 Flow FiO2 Time Delivery Rate 03/28/19 98.3 102 18 108/58 99 Room Air 15:29 (75) 03/26/19 6.0 18:34 Intake and Output 03/27/19 03/27/19 03/28/19 1515:00 23:00 07:00 IntakeIntake Total 160 ml OutputOutput Total 495 ml BalanceBalance -335 ml Exam Free Text/Dictation Left lower extremity: Dressing: clean, dry, and intact, no erythema Sensation intact to light touch in a sural, saphenous, deep peroneal, superf icial peroneal, medial and lateral plantar nerve distribution. Motor is intact, patient able to dorsiflex and plantarflex ankle and extend and flex great toe. Dorsalis Pedis pulse +2, Brisk capillary refill. Compartments are soft. Calves non-tender to palpation bilaterally. Results Result Diagram: 03/28/19 0425 03/28/19 0425 BERNA WALTERS MD March 28, 2019 19:00
[2019-03-28 19:45] VITALS: BP 91/55; PULSE 97; RESP 20
[2019-03-28] MEDS: GABAPENTIN 300 MG CAP PO SCH (20:38)
[2019-03-29 02:10] VITALS: BP 100/54; PULSE 20; RESP 20
[2019-03-29] MEDS: oxyCODONE 5 MG TAB PO PRN ×3 (02:55→13:02)
[2019-03-29] MEDS: PANTOPRAZOLE (EC) 40 MG TAB PO SCH (05:29)
[2019-03-29] MEDS: ACETAMINOPHEN 500 MG TAB PO SCH ×2 (05:29→14:14)
[2019-03-29 07:23] VITALS: BP 90/58; PULSE 82; RESP 19
[2019-03-29] MEDS: DOCUSATE SODIUM 100 MG CAP PO SCH (08:19)
[2019-03-29] MEDS: ASPIRIN (EC) 81 MG TAB PO SCH (08:19)
[2019-03-29] MEDS: LEFLUNOMIDE 20 MG TAB PO SCH (08:20)
--- NOTE | 2019-03-29 08:41 | CONS ---
Assessment/Plan Assessment/Plan Hospital Course (Demo Recall) SUBJECTIVE: Complains of nausea. Hasn't had a BM since surgery. OBJECTIVE: Physical Exam General: Adequately build 53 year-old female sitting in a chair in no apparent distress. HEENT: Normocephalic, atraumatic. Eyes: Anicteric sclerae, conjunctivae clear. ENT: Nasal septum midline, oral mucosa moist. Neck supple, no JVD noticed. Respiratory: Bilaterally clear breath sounds. No use of accessory muscles of respiration. No adventitious breath sounds. Cardiovascular: S1, S2 heard. Regular rate and rhythm. Abdomen: Soft, nontender, and nondistended. Bowel sounds positive in all 4 quadrants. Genitourinary: Deferred. Extremities: No cyanosis, no clubbing. Left knee surgical dressing. Peripheral pulses palpable. Neurologic: Cranial nerves II through XII grossly intact. The patient is awake, alert, and oriented. Skin: Normal skin turgor. No skin rashes. Labs & Vitals per chart ASSESSMENT & PLAN 53-year-old female who was admitted for elective left total knee arthroplasty and is being monitored as inpatient. 1. Left knee rheumatoid arthritis and pseudoarthrosis. -Status post left total knee arthroplasty on 03/26/2019. -Postoperative day #3. -Continue pain control. -Pain management as per orthopedic surgery. -Weightbearing and anticoagulation as per orthopedic surgery. 2. Iatrogenic fracture of the left femur. -S/P open reduction internal fixation of iatrogenic femur fracture on 03/26/2019 3. Normocytic, normochromic anemia. -Etiology could be multifactorial including anemia of acute blood loss and most probably anemia of chronic disease -Monitor H&H closely. 4. Rheumatoid arthritis -Continue leflunomide. 5. Fluids, electrolytes, and nutrition. -Regular diet. 6. Anticoagulation. -As per orthopedic surgery. 7. Recommendations. -Drop in H&H noticed. -No evidence of any significant bleeding. -Blood pressure on the lower side, however, remains asymptomatic and the patient verbalized she always had low blood pressure readings. -PRN Zofran. Fleets Vs Dulcolax suppository before discharge. The patient is medically stable to be discharged once cleared by orthopedic surgery. Thank you Dr. Geiger for allowing us to participate in this patient's care. The patient was seen in collaboration with Dr. Bee. Consultation Date/Type/Reason Admit Date/Time March 28, 2019 at 08:08 Initial Consult Date 03/27/19 Type of Consult Medical. Reason for Consultation Medical management. Requesting Provider: BERNA GEIGER MD Date/Time of Note DATE: 03/29/19 TIME: 08:38 Exam/Review of Systems Exam Vitals Vital Signs Date Temp Pulse Resp B/P (MAP) Pulse Ox O2 O2 Flow FiO2 Time Delivery Rate 03/29/19 99.2 82 19 90/58 (69) 96 07:23 03/29/19 Room Air 02:10 03/26/19 6.0 18:34 Intake and Output 03/28/19 03/28/19 03/29/19 1515:00 23:00 07:00 IntakeIntake Total 200 ml 400 ml 560 ml OutputOutput Total 150 ml 300 ml 400 ml BalanceBalance 50 ml 100 ml 160 ml Results Result Diagram: 03/29/19 0424 03/29/19 0424 Results 24hrs Laboratory Tests Test 03/29/19 04:24 White Blood Count 6.4 Red Blood Count 2.73 L Hemoglobin 7.7 L Hematocrit 24.5 L Mean Corpuscular Volume 89.7 Mean Corpuscular Hemoglobin 28.2 L Mean Corpuscular Hemoglobin Concent 31.4 L Red Cell Distribution Width 15.1 H Platelet Count 203 Mean Platelet Volume 9.7 Immature Granulocytes % 0.200 Neutrophils % 61.4 Lymphocytes % 31.4 Monocytes % 5.1 Eosinophils % 1.6 Basophils % 0.3 Nucleated Red Blood Cells % 0.0 Immature Granulocytes # 0.010 Neutrophils # 4.0 Lymphocytes # 2.0 Monocytes # 0.3 Eosinophils # 0.1 Basophils # 0.0 Nucleated Red Blood Cells # 0.0 Sodium Level 140 Potassium Level 4.3 Chloride Level 105 Carbon Dioxide Level 30 Anion Gap 5 Blood Urea Nitrogen 11 Creatinine 0.52 Est Glomerular Filtrat Rate mL/min > 60 Glucose Level 93 Calcium Level 8.3 L Medications Medication Current Medications IV Flush (NS 3 ml) 3 ml PER PROTOCOL IV ; Start 03/26/19 at 18:30 Oxycodone HCl (Roxicodone) 15 mg Q4H PRN PO .PAIN Last administered on 03/29/19at 07:01; Admin Dose 15 MG; Start 03/26/19 at 18:30 Oxycodone HCl (Roxicodone) 10 mg Q4H PRN PO .PAIN Last administered on 03/28/19 15:19; Admin Dose 10 MG; Start 03/26/19 at 18:30 Oxycodone HCl (Roxicodone) 5 mg Q4H PRN PO .PAIN Last administered on 03/27/19 18:51; Admin Dose 5 MG; Start 03/26/19 at 18:30 Hydromorphone HCl (Dilaudid) 1 mg Q3H PRN IV .BREAKTHROUGH PAIN Last administered on 03/28/19 09:08; Admin Dose 1 MG; Start 03/26/19 at 18:30 Acetaminophen (Tylenol Tab) 1,000 mg Q8 PO Last administered on 03/29/19 05:29; Admin Dose 1,000 MG; Start 03/26/19 at 22:00 Ketorolac Tromethamine (Toradol) 15 mg Q6H PRN IV .PAIN Last administered on 03/28/19 18:02; Admin Dose 15 MG; Start 03/26/19 at 18:30 Ondansetron HCl (Zofran Inj) 4 mg Q4H PRN IV NAUSEA/VOMITING Last administered on 03/29/19 08:17; Admin Dose 4 MG; Start 03/27/19 at 18:30 Gabapentin (Neurontin) 300 mg QHS PO Last administered on 03/28/19 20:38; Admin Dose 300 MG; Start 03/26/19 at 21:00 Pantoprazole (Protonix Tab) 40 mg DAILY@06 PO Last administered on 03/29/19 05:29; Admin Dose 40 MG; Start 03/28/19 at 06:00 Docusate Sodium (Colace) 200 mg BID PO Last administered on 03/29/19 08:19; Admin Dose 200 MG; Start 03/27/19 at 09:00; Stop 03/30/19 at 08:59 Simethicone (Mylicon) 80 mg TID PRN PO .GAS; Start 03/26/19 at 18:30 Senna/Docusate Sodium (Senokot-S) 2 tab BID PRN PO .CONSTIPATION Last administered on 03/28/19 20:38; Admin Dose 2 TAB; Start 03/26/19 at 18:30 Magnesium Hydroxide (Milk Of Mag) 30 ml HS PRN PO .CONSTIPATION Last administered on 03/28/19at 20:38; Admin Dose 30 ML; Start 03/26/19 at 18:30 Bisacodyl (Dulcolax Supp) 10 mg DAILY PRN CA .CONSTIPATION; Start 03/26/19 at 18:30 Sodium Biphosphate/ Sodium Phosphate (Fleet Enema) 133 ml DAILY PRN CA .CONSTIPATION; Start 03/26/19 at 18:30 Diphenhydramine HCl (Benadryl) 25 mg Q4H PRN IV .ITCHING; Start 03/26/19 at 18:30 Naloxone HCl (Narcan) 0.2 mg Q2M PRN IV .RESP RATE; Start 03/26/19 at 18:30 Bethanechol Chloride (Urecholine) 25 mg URINARY CATH D/C PRN PO UNABLE TO VOID; Start 03/26/19 at 18:30 Aspirin (Halfprin) 81 mg BID PO Last administered on 03/29/19at 08:19; Admin Dose 81 MG; Start 03/27/19 at 09:00 Leflunomide (Arava) 10 mg DAILY PO Last administered on 03/29/19at 08:20; Admin Dose 10 MG; Start 03/27/19 at 10:30 ABDELRAHMAN OTTO NP March 29, 2019 08:41
[2019-03-29] MEDS ORDERED: PROCHLORPERAZINE 10 MG INJ IV ONE (11:30)
[2019-03-29] MEDS ORDERED: ASPI-1044 PO (17:09)
[2019-03-29] MEDS ORDERED: GABA300C16 PO (17:09)
[2019-03-29] MEDS ORDERED: OXYC-481 PO (17:09)
--- NOTE | 2019-03-29 17:10 | PDOCDIS ---
Discharge Instructions CONDITION [id number] Patient Condition: [id number] Good HOME CARE INSTRUCTIONS: [id number] Diet Instructions: [id number] Regular ACTIVITY: [id number] Activity Restrictions: [id number] Slowly Increase Activity Rest between Activity Avoid heavy lifting Do not operate Machinery Avoid Heavy Housework Partial Weight Bearing [id number] Bathing Restrictions: [id number] Shower BERNA WALTERS MD March 29, 2019 17:10
--- NOTE | 2019-03-29 17:13 | DS ---
Date/Time of Note Date/Time of Note DATE: 03/29/19 TIME: 17:11 Discharge Summary Admission/Discharge Info Admit Date/Time March 28, 2019 at 08:08 Discharge Date/Time Hospital Course POD#3 s/p primary left TKA with TC3. Patient's pain is much better controlled today. She did well with physical therapy. I reviewed her extension flexion exercises with her. She is tolerating her diet. She is stable from medical and surgical standpoint to be discharged home. Physical therapy needs to focus on range of motion especially full extension. -Post op H&H stable -PT/OT -Joints pain control protocol -DVT prophylaxis: SCD's, aspirin 81 mg twice daily x6 weeks -Weight bearing status: Partial weightbearing 20% left lower extremity secondary to iatrogenic femur fracture -Diet: ADAT -Salazar: Discontinued Planned Discharge Date: Today Discharge to with home health Follow-up in clinic 2 weeks Home Meds Reported Medications Adalimumab (Humira) 40 Mg/0.8 Ml [email or web address], 40 MG SQ EVERY 2 WEEKS 03/26/19 Leflunomide* (Leflunomide*) 10 Mg Tablet, 10 MG PO DAILY, #30 TAB 03/26/19 Discontinued Scripts Fluconazole* (Diflucan*) 150 Mg Tablet, 150 MG PO DAILY for 1 Day, #1 TAB Prov:ANGELA,ANUSHA 05/18/18 Tramadol HCl (Tramadol HCl) 50 Mg Tablet, 50 MG PO Q6 PRN for PAIN, #20 TAB Prov:ANGELA,ANUSHA 05/18/18 Metronidazole (Metronidazole Gel) 0.75% - 70GM Gel.w.appl, 1 APPFUL VAGINAL BID for BV for 7 Days, #1 TUB Prov:ANGELA,ANUSHA 05/18/18 Promethazine HCl/Codeine (Prometh-Codein 6.25-10 mg/5 ml) 5 Ml Syrup, 5 ML PO Q6, #4 OZ Prov:AARTI MCKEON PA-C 04/08/17 Azithromycin* (Zithromax*) 250 Mg Tablet, 250 MG PO .ZPACK DIRECTED, #6 TAB TAKE 500 MG (2 TABS) THE FIRST DAY THEN 250 MG (1 TAB) DAYS 2-5 Prov:AARTI MCKEON PA-C 04/08/17 Lidocaine 4% Topical (Lidocaine HCl) 4%-50 Ml Soln, 1 APPLIC MM BID, #1 BOT Prov:KEITH BORJA PA-C 12/14/16 Ondansetron Hcl* (Zofran* ODT) 4 mg -ODT Tab.disper, 4 MG PO Q6H PRN for NAUSEA, #30 TAB Prov:PATRICA COLEMAN MD 08/28/15 Dicyclomine HCl (Dicyclomine HCl) 10 Mg Capsule, 10 MG PO QID, #20 CAP Prov:PATRICA COLEMAN MD 08/28/15 Primary Care Provider Sun Childs MD Pending Labs Laboratory Tests Test 03/29/19 04:24 White Blood Count 6.4 10^3/ul (4.8-10.8) Red Blood Count 2.73 10^6/ul (4.20-5.40) Hemoglobin 7.7 g/dl (12.0-16.0) Hematocrit 24.5 % (37.0-47.0) Mean Corpuscular Volume 89.7 fl (82.0-101.0) Mean Corpuscular Hemoglobin 28.2 pg (29.0-33.0) Mean Corpuscular Hemoglobin Concent 31.4 g/dl (32.0-37.0) Red Cell Distribution Width 15.1 % (11.5-14.5) Platelet Count 203 10^3/UL (140-415) Mean Platelet Volume 9.7 fl (7.4-10.4) Immature Granulocytes % 0.200 % (0.001-0.429) Neutrophils % 61.4 % (39.0-77.0) Lymphocytes % 31.4 % (15.0-51.0) Monocytes % 5.1 % (0.0-11.0) Eosinophils % 1.6 % (0.0-7.0) Basophils % 0.3 % (0.0-2.0) Nucleated Red Blood Cells % 0.0 /100WBC (0.0-0.0) Immature Granulocytes # 0.010 10^3/ul (0.0-0.031) Neutrophils # 4.0 10^3/ul (1.6-7.5) Lymphocytes # 2.0 10^3/ul (0.8-2.9) Monocytes # 0.3 10^3/ul (0.3-0.9) Eosinophils # 0.1 10^3/ul (0.0-0.5) Basophils # 0.0 10^3/ul (0.0-0.1) Nucleated Red Blood Cells # 0.0 10^3/ul (0.0-0.0) Sodium Level 140 mmol/L (135-144) Potassium Level 4.3 mmol/L (3.5-5.1) Chloride Level 105 mmol/L (97-110) Carbon Dioxide Level 30 mmol/L (21-31) Anion Gap 5 (5-13) Blood Urea Nitrogen 11 mg/dl (7-20) Creatinine 0.52 mg/dl (0.44-1.00) Est Glomerular Filtrat Rate mL/min > 60 mL/min (>60) Glucose Level 93 mg/dl (70-220) Calcium Level 8.3 mg/dl (8.4-10.2) BERNA WALTERS MD March 29, 2019 17:13
== END 2019-03-29 18:20 | disposition home health service (06) | DRG 470 ==
LOC: SDS 07:15 → UNDOADMIN 03-26 07:27 → REC 03-26 07:27 → INTOOBSV 03-26 07:27 → REC 03-26 09:42 → EDSTATUS 03-26 12:00 → MS1 03-26 20:20 → OBSVTOIN 03-28 08:08
PROVIDERS: ADMIT Orthopaedic Surgery Adult Reconstructive Orthopaedic Surgery; ATTEND Orthopaedic Surgery Adult Reconstructive Orthopaedic Surgery
PROC: 0SRD0J9 Replacement of Left Knee Joint with Synthetic Substitute, Cemented, Open Approach (ICD-10-PCS; principal; 2019-03-26 12:00)
DX: M06.862 Other specified rheumatoid arthritis, left knee (principal); D64.9 Anemia, unspecified; Z79.01 Long term (current) use of anticoagulants
CPT/HCPCS: 73560; 80048; 81001; 82728; 83540; 85025; 86850; 86900; 86901; 87081; 87086; 88304; 88311; 97161; 97167; C1776; C1713; G0378; J0131; J0171; J0690; J0735; J0780; J1170; J1885; J2001; J2250; J2274; J2405; J2765; J2795; J3010; J7120